=== PATIENT | female | born 1940 | race Caucasian/White ===

== ENCOUNTER 2018-08-21 11:14 | Outpatient (RCR) | payer BC ==
--- NOTE | 2018-08-01 10:48 | CARECAPL ---
Assessment Account #s: Initial Assessment General Diagnoses: Stent Date of event: November 14, 2017 Physician: Myron Newman Date Entered Program: Aug 01, 2018 Risk strat for cardiac event: Low Exercise Date: Aug 01, 2018 Assessment: Initial Assessment Exercise Prescription Plan to educate about cardiac risk factors and to build endurance through a monitor program Modalities initiated: Treadmill (will add), Cardio-Strider (october add), Nustep (l2 mts 3.0 rpe 2), Arm Aerometer (1.0 rpe 3 mts 2.43), Dumbells (will add), Recumbent Bike (r1 mts 3.7 rpe 4) Frequency: 2 Duration (Minutes) 30-60 minutes total exercise a day. 8-12 work intervals in minutes. rest intervals in minutes. Functional Capacity Goal Sustained Metabolic Equivalent of a task (MET) goal of 4.0-4.5 for 15-20 minutes. Intensity: 3-Moderate Progression (METS) Increase by: .5 METS every: 2sessions Angina with ex: No Target Heart Rate rest 35-40 Reps: 6-8 Hypertension: Yes Hypertension controlled with: Diet Resting 165/77 Peak Exercise BP 170/80 Meds see below Medications Scheduled Aspirin (Aspir-81), 81 MG PO DAILY, (Reported) Atorvastatin Calcium (Atorvastatin Calcium), 1 TAB PO DAILY, (Reported) Cholecalciferol (Vitamin D), 2,000 UNIT PO DAILY, (Reported) Clopidogrel Bisulfate (Clopidogrel), 75 MG PO DAILY, (Reported) Metoprolol Tartrate (Metoprolol Tartrate), 25 MG PO BID, (Reported) Nifedipine (Nifedipine), 30 CAP PO DAILY, (Reported) Nitroglycerin (Nitroglycerin), 0.4 MG SL ASDIRECTED, (Reported) [place] 3 Polyunsat Fatty Acids (Fish Oil 1000 mg), 1 CAP PO DAILY, (Reported) Target Goals Individual exercise Rx (1) BP 140/90 or 130/80 if DM or CKD (1) Aerobic active 30+min 5 days per week (1) Nutrition Date: Aug 01, 2018 Assessment: Initial Assessment Lipid- med/supplement Atorvastatin Calcium Diabetes Diabetes: No Weight Management Weight (lbs): 169.4 Height (inches): 64 Waist Circumference (Inches): 44 BMI: 29.0 Weight goal: 145 Special Diet: low salt, mediteranean diet, low-fat Diet Access Tool: Rate your plate Score: 45 Intervention Billing Customer Service Representative Consult: Yes Nurse/patient discussion: Yes Dietary Goals make better choices and smaller portions Target goal LDL-C<100 if triglycerides are >200 Non-HDL-C should be <130 (1) LDL-C<70 for high risk patients (4) HbA1c<7% (1) BMI<25 Waist cir<40in M/<35in F (1) Education Date: Aug 01, 2018 Assessment: Initial Assessment Learning Barriers: ready Knowledge Test Score: 10 Family Support: Yes Tobacco use: No Intervention Education: CAD, Risk factors, med compliance, cardiac A&P, Angina S/S, Sex uality Target Goals Complete cessation of tobacco use (1). Psychosocial Date: Aug 01, 2018 Assessment: Initial Assessment Psych Test (Initial/Discharge) Tool Used: CESD Score: 6 Intervention Physician Consult: No Physician Referral: No Stress Management Class: Yes Uses Stress Management Skills: Yes Education Education: Coping Techniques, S/S depression, Relaxation Techniques Target Goal Assess presence or absence of depression using a valid screening tool (1). Maximize coping skills (2). Positive support system (2). Patient/Program Goal Preventative Medication: Yes Beta blockade, Yes Statin/OTR lipid Lowering Fall Risk Assess: No Provider Assessment Session Number: 1 Provider Assessment: Proceed with rehab Rosa Fisher RN Aug 01, 2018 10:48
[~2018-08-21 11:14] MED LIST: ASPI81TA85 PO; ATOR40TA75 PO; CLOP75TA2 PO; FISH7.5C PO; METO37.5 PO; NIFE20CA PO; NITR0.4S14 SL; VITA200015 PO
== END 2018-08-22 ==
LOC: M CR 11:14
PROVIDERS: ATTEND Family Medicine
DX: Z98.61 Coronary angioplasty status (principal)

== ENCOUNTER 2018-09-18 10:37 | Outpatient (RCR) | payer BC, MEDICARE ==
--- NOTE | 2018-08-23 14:16 | CARECAPL ---
Assessment Account #s: Re-Assessment I General Diagnoses: Stent Date of event: November 14, 2017 Physician: Myron Newman strat for cardiac event: Low Exercise Date: Aug 23, 2018 Assessment: Re-Assessment I Exercise Prescription Modalities initiated: Treadmill, Nustep, Arm Aerometer, Dumbells, Recumbent Bike Frequency: 2-3 Duration (Minutes) minutes total exercise a day. work intervals in minutes. rest intervals in minutes. Functional Capacity Goal Sustained Metabolic Equivalent of a task (MET) goal of for minutes. Intensity: 3-Moderate Progression (METS) Increase by: METS every: sessions Angina with ex: No Resistance Training: Yes Weight (pounds): 3 Reps: 6-8 Medications Scheduled Aspirin (Aspir-81), 81 MG PO DAILY, (Reported) Atorvastatin Calcium (Atorvastatin Calcium), 1 TAB PO DAILY, (Reported) Cholecalciferol (Vitamin D), 2,000 UNIT PO DAILY, (Reported) Clopidogrel Bisulfate (Clopidogrel), 75 MG PO DAILY, (Reported) Metoprolol Tartrate (Metoprolol Tartrate), 25 MG PO BID, (Reported) Nifedipine (Nifedipine), 30 CAP PO DAILY, (Reported) Nitroglycerin (Nitroglycerin), 0.4 MG SL ASDIRECTED, (Reported) [place] 3 Polyunsat Fatty Acids (Fish Oil 1000 mg), 1 CAP PO DAILY, (Reported) Current BP 146/80 Med Change: No Target Goals Individual exercise Rx (1) BP 140/90 or 130/80 if DM or CKD (1) Aerobic active 30+min 5 days per week (1) Nutrition Date: Aug 23, 2018 Assessment: Re-Assessment I Med Change: No Medication Change: No Current Weight (pounds): 169.6 Intervention Security Investigator Consult: Yes Nurse/patient discussion: Yes Target goal LDL-C<100 if triglycerides are >200 Non-HDL-C should be <130 (1) LDL-C<70 for high risk patients (4) HbA1c<7% (1) BMI<25 Waist cir<40in M/<35in F (1) Education Date: Aug 23, 2018 Assessment: Re-Assessment I Family Support: Yes Intervention Education class schedule given: Yes Attended education classes: Yes Education: CAD, Risk factors, med compliance, cardiac A&P Target Goals Complete cessation of tobacco use (1). Psychosocial Date: Aug 23, 2018 Assessment: Re-Assessment I Intervention Physician Consult: No Physician Referral: No Med Change: No Stress Management Class: Yes Uses Stress Management Skills: Yes Education Education: Coping Techniques, S/S depression, Relaxation Techniques Target Goal Assess presence or absence of depression using a valid screening tool (1). Maximize coping skills (2). Positive support system (2). Provider Assessment Session Number: 7 Provider Assessment: No changes Rosa Fisher RN Aug 23, 2018 14:16
--- NOTE | 2018-09-16 09:49 | CARECAPL ---
Assessment Account #s: Re-Assessment II General Diagnoses: Stent Date of event: November 14, 2017 Physician: Myron Newman Date Entered Program: Aug 01, 2018 Risk strat for cardiac event: Low Exercise Date: Sep 16, 2018 Assessment: Re-Assessment II Exercise Prescription Modalities initiated: Treadmill, Nustep, Arm Aerometer, Dumbells, Recumbent Bike Frequency: 2 Duration (Minutes) minutes total exercise a day. work intervals in minutes. rest intervals in minutes. Functional Capacity Goal Sustained Metabolic Equivalent of a task (MET) goal of for minutes. Intensity: 3-Moderate Progression (METS) Increase by: METS every: sessions Angina with ex: No Resistance Training: Yes Weight (pounds): 3 Reps: 8-12 Medications Scheduled Aspirin (Aspir-81), 81 MG PO DAILY, (Reported) Atorvastatin Calcium (Atorvastatin Calcium), 1 TAB PO DAILY, (Reported) Cholecalciferol (Vitamin D), 2,000 UNIT PO DAILY, (Reported) Clopidogrel Bisulfate (Clopidogrel), 75 MG PO DAILY, (Reported) Metoprolol Tartrate (Metoprolol Tartrate), 25 MG PO BID, (Reported) Nifedipine (Nifedipine), 30 CAP PO DAILY, (Reported) Nitroglycerin (Nitroglycerin), 0.4 MG SL ASDIRECTED, (Reported) [place] 3 Polyunsat Fatty Acids (Fish Oil 1000 mg), 1 CAP PO DAILY, (Reported) Current BP 138/76 Med Change: No Target Goals Individual exercise Rx (1) BP 140/90 or 130/80 if DM or CKD (1) Aerobic active 30+min 5 days per week (1) Nutrition Date: Sep 16, 2018 Assessment: Re-Assessment II Current Weight (pounds): 169.4 Education Eating Healthy Target goal LDL-C<100 if triglycerides are >200 Non-HDL-C should be <130 (1) LDL-C<70 for high risk patients (4) HbA1c<7% (1) BMI<25 Waist cir<40in M/<35in F (1) Education Date: Sep 16, 2018 Assessment: Re-Assessment II Intervention Attended education classes: Yes Education: CAD, Risk factors, med compliance, cardiac A&P, Angina S/S, Sexuality Target Goals Complete cessation of tobacco use (1). Psychosocial Date: Sep 16, 2018 Assessment: Re-Assessment II Stress Management Class: Yes Uses Stress Management Skills: Yes Education Education: Coping Techniques, S/S depression, Relaxation Techniques Target Goal Assess presence or absence of depression using a valid screening tool (1). Maximize coping skills (2). Positive support system (2). Provider Assessment Session Number: 14 Provider Assessment: No changes Rosa Fisher RN Sep 16, 2018 09:49
== END 2018-09-22 ==
LOC: M CR 10:37
PROVIDERS: ATTEND Family Medicine
DX: Z98.61 Coronary angioplasty status (principal)

== ENCOUNTER 2018-10-16 08:02 | Outpatient (RCR) | payer MEDICARE | END 2018-10-22 | LOC: M CR 08:02 | PROVIDERS: ATTEND Family Medicine | DX: Z98.61 Coronary angioplasty status (principal) ==

== ENCOUNTER 2018-10-23 09:48 | Outpatient (RCR) | payer MEDICARE ==
--- NOTE | 2018-10-23 10:29 | CARECAPL ---
General Diagnoses: Stent Date of event: November 14, 2017 Date Entered Program: Aug 01, 2018 Risk strat for cardiac event: Low Exercise Date: October 23, 2018 Assessment: Followup/Discharge Exercise Prescription Modalities initiated: Treadmill (speed 2.5/incline 1.5 mets 3.26 RPE 2.5), Nustep (level 6 mets 3.9 RPE 3), Arm Aerometer (resistance 4.0 mets 3.51 RPE 3), Dumbells (3lbs RPE 3), Recumbent Bike (resistance 3 mets 4.4 RPE 2.5) Frequency: 2 Duration (Minutes) 30-60 minutes total exercise a day. 6-10 work intervals in minutes. prn rest intervals in minutes. Functional Capacity Goal Sustained Metabolic Equivalent of a task (MET) goal of 4.0-4.5 for 15-20 minutes. Intensity: 3-Moderate Progression (METS) Increase by: 0.5 METS every: 3-5 sessions Angina with ex: No Target Heart Rate rest + 35-40 per beta clotilde therapy Resistance Training: Yes Weight (pounds): 3 Reps: 8-12 Hypertension: No Hypertension controlled with: Medication Resting 130/80 Peak Exercise BP 170/94 Meds metoprolol, nifedipine Medications Scheduled Aspirin (Aspir 81), 81 MG PO DAILY, (Reported) Atorvastatin Calcium (Atorvastatin Calcium), 1 TAB PO DAILY, (Reported) Cholecalciferol (Vitamin D3) (Vitamin D3), 2,000 UNIT PO DAILY, (Reported) Clopidogrel Bisulfate (Clopidogrel), 75 MG PO DAILY, (Reported) Metoprolol Tartrate (Metoprolol Tartrate), 25 MG PO BID, (Reported) Nifedipine (Nifedipine), 30 CAP PO DAILY, (Reported) Nitroglycerin (Nitroglycerin), 0.4 MG SL ASDIRECTED, (Reported) [place]-3/Dha/Epa/Fish Oil (Fish Oil EC 1,000 mg Softgel), 1 CAP PO DAILY, (Reported) Education Goals Met: Yes Target Goals Individual exercise Rx (1) BP 140/90 or 130/80 if DM or CKD (1) Aerobic active 30+min 5 days per week (1) Nutrition Date: October 23, 2018 Assessment: Followup/Discharge (shukri) Med Change: No Diabetes Diabetes: No Medication Change: No Diet Access Tool: Rate your plate Score: 63 Referral to Diabetes education: No Referral to lipid clinic: No Referral to weight mangement p: No Education Goals Met: Yes Target goal LDL-C<100 if triglycerides are >200 Non-HDL-C should be <130 (1) LDL-C<70 for high risk patients (4) HbA1c<7% (1) BMI<25 Waist cir<40in M/<35in F (1) Education Date: October 23, 2018 Assessment: Followup/Discharge Knowledge Test Score: 10 Family Support: Yes Education Goals Met: Yes Target Goals Complete cessation of tobacco use (1). Psychosocial Date: October 23, 2018 Assessment: Followup/Discharge Psych Test (Initial/Discharge) Tool Used: CESD Score: 2 Med Change: No Stress Management Class: Yes Uses Stress Management Skills: Yes Education Education: Coping Techniques, S/S depression, Relaxation Techniques Education Goals Met: Yes Target Goal Assess presence or absence of depression using a valid screening tool (1). Maximize coping skills (2). Positive support system (2). Patient/Program Goal Preventative Medication: Yes Aspirin, Yes Clopidogrel, Yes Beta blockade, Yes Statin/OTR lipid Lowering, Yes Other (calcium channel clotilde) Fall Risk Assess: No Provider Assessment Session Number: 24 Provider Assessment: Please add/change: (discharged from program) Mery Vieira RN October 23, 2018 10:28
== END 2018-11-22 ==
LOC: M CR 09:48
PROVIDERS: ATTEND Family Medicine
DX: Z98.61 Coronary angioplasty status (principal)

== ENCOUNTER 2021-08-14 11:05 | Inpatient (IN) | payer MEDICARE ==
[~2021-08-14] VITALS: Ht 162.6 cm; Wt 79.8 kg
[~2021-08-14 11:05] MED LIST changes: -ASPI81TA85 PO; +ASPI81TA86 PO
[2021-08-14 11:46] VITALS: BP 181/78
[2021-08-14 11:51] LABS: BASO # 0.1 10^3/uL (0.0-0.2); BASO % 0.8 % (0.0-1.0); EOS # 0.3 10^3/uL (0.0-0.5); EOS % 3.9 % (0.0-3.0); HEMATOCRIT 41.9 % (36.0-47.0); HEMOGLOBIN 13.5 g/dl (12.0-15.5); LYMPH # 1.4 10^3/uL (1.5-5.0); LYMPH % 19.7 % (24.0-44.0); MEAN CORPUSCULAR HEMOGLOBIN 29.6 pg (27.0-33.0); MEAN CORPUSCULAR HGB CONC 32.2 g/dl (32.0-36.5); MEAN CORPUSCULAR VOLUME 91.9 fl (80.0-96.0); MONO # 0.6 10^3/uL (0.0-0.8); MONO % 7.9 % (2.0-8.0); NEUTROPHILS # 4.8 10^3/uL (1.5-8.5); NEUTROPHILS % 67.4 % (36.0-66.0); PLATELET COUNT, AUTOMATED 293 10^3/uL (150-450); RED BLOOD COUNT 4.56 10^6/uL (4.00-5.40); WHITE BLOOD COUNT 7.2 10^3/uL (4.0-10.0)
[2021-08-14 12:01] LABS: INR 0.89; PROTHROMBIN TIME 12.4 SECONDS (12.7-14.5)
[2021-08-14 12:02] LABS: PARTIAL THROMBOPLASTIN TIME 28.3 SECONDS (25.9-37.0)
[2021-08-14 12:18] LABS: CALCIUM LEVEL 9.2 MG/DL (8.8-10.2); CREATININE FOR GFR 0.98 MG/DL (0.55-1.30); GLOMERULAR FILTRATION RATE 58.1 (>32); POTASSIUM SERUM 4.2 MEQ/L (3.5-5.1)
[2021-08-14 12:22] LABS: CK-MB VALUE MASS < 1.0 NG/ML (<3.6); CPK CREATINE PHOSPHOKINASE 39 U/L (26-192); MB/CK RELATIVE INDEX 2.56 (< OR =4)
[2021-08-14 12:45] LABS: RSV AMPLIFICATION NEGATIVE (NEGATIVE)
[2021-08-14] MEDS ORDERED: GLUCOSE 4GM CHEW TABLET PO PRN (12:50)
[2021-08-14] MEDS ORDERED: DEXTROSE 50% 50 ML SYRINGE IV PRN (12:50)
[2021-08-14] MEDS ORDERED: GLUCAGON INJ 1MG VIAL SC PRN (12:50)
[2021-08-14] MEDS ORDERED: ASPI81TA26 PO (13:07)
[2021-08-14] MEDS ORDERED: D31000TA2 PO (13:07)
[2021-08-14] MEDS ORDERED: NIFE1TAB52 PO (13:07)
[2021-08-14] MEDS ORDERED: METO1TAB87 PO (13:07)
[2021-08-14] MEDS ORDERED: GABA-1171 PO (13:07)
[2021-08-14] MEDS ORDERED: HOME MED LIST COMPLETE! XX SCH (13:15)
[2021-08-14] MEDS ORDERED: D5W/0.45% SODIUM CHLORIDE 1,000 ML IV SCH (14:00)
[2021-08-14 16:50] VITALS: BP 162/88
[2021-08-14 20:00] VITALS: BP 145/65
[2021-08-14] MEDS ORDERED: ENOXAPARIN 40MG/0.4ML SYRINGE (J1650 PER 10MG) SC SCH (21:00)
[2021-08-14] MEDS ORDERED: ATORVASTATIN 20 MG TAB PO SCH (21:00)
[2021-08-15] VITALS: BP 132/62
[2021-08-15 03:17] LABS: HEMATOCRIT 37.8 % (36.0-47.0); HEMOGLOBIN 12.5 g/dl (12.0-15.5); MEAN CORPUSCULAR HEMOGLOBIN 30.6 pg (27.0-33.0); MEAN CORPUSCULAR HGB CONC 33.1 g/dl (32.0-36.5); MEAN CORPUSCULAR VOLUME 92.4 fl (80.0-96.0); PLATELET COUNT, AUTOMATED 249 10^3/uL (150-450); RED BLOOD COUNT 4.09 10^6/uL (4.00-5.40); WHITE BLOOD COUNT 6.5 10^3/uL (4.0-10.0)
[2021-08-15 03:40] LABS: HEMOGLOBIN A1c 5.4 %
[2021-08-15 03:42] LABS: CALCIUM LEVEL 8.6 MG/DL (8.8-10.2); CHOLESTEROL RISK RATIO 2.229 (<5); CREATININE FOR GFR 0.96 MG/DL (0.55-1.30); GLOMERULAR FILTRATION RATE 59.5 (>32); MAGNESIUM LEVEL 2.2 MG/DL (1.8-2.4); POTASSIUM SERUM 4.2 MEQ/L (3.5-5.1)
[2021-08-15 04:00] VITALS: BP 139/72
[2021-08-15 08:00] VITALS: BP 143/63
[2021-08-15] MEDS ORDERED: VITAMIN D 1,000 INTERNATIONAL UNITS TABLET PO SCH (09:00)
[2021-08-15] MEDS ORDERED: OMEGA-3 1000MG CAPSULE PO SCH (09:00)
[2021-08-15] MEDS ORDERED: ASPIRIN 81 MG CHEW TABLET PO SCH (09:00)
[2021-08-15] MEDS ORDERED: CLOPIDOGREL 75 MG TAB PO SCH (09:00)
[2021-08-15 12:00] VITALS: BP 154/72
[2021-08-16] MEDS ORDERED: PNEUMOCOCCAL VACCINE 0.5ML SYRINGE (PNEUMOVAX 23) IM ONE (09:00)
[2021-08-16] MEDS ORDERED: FLUBLOK(EGG FREE)(QUAD)INFLUENZA VACC 0.5ML SYRINGE 18YRS & OLDER IM ONE (09:00)
== END 2021-08-15 14:32 | disposition short-term general hospital (02) | DRG 64 ==
LOC: EDBD 11:05 → M ED 11:05 → M ED INP 12:50 → ENRESERV 15:15 → M PCU 16:50
PROVIDERS: ADMIT General Practice; ATTEND General Practice
DX: I63.9 Cerebral infarction, unspecified (principal); I62.00 Nontraumatic subdural hemorrhage, unspecified; I50.32 Chronic diastolic (congestive) heart failure; R13.10 Dysphagia, unspecified; I11.0 Hypertensive heart disease with heart failure; E78.00 Pure hypercholesterolemia, unspecified; I25.10 Atherosclerotic heart disease of native coronary artery without angina pectoris; Z95.5 Presence of coronary angioplasty implant and graft; Z87.891 Personal history of nicotine dependence; Z20.822 Contact with and (suspected) exposure to COVID-19; Z79.82 Long term (current) use of aspirin; Z79.899 Other long term (current) drug therapy; Z88.2 Allergy status to sulfonamides; Z88.8 Allergy status to other drugs, medicaments and biological substances